=== PATIENT | female | born 1995 | race Caucasian/White ===

== ENCOUNTER 2021-01-13 18:28 | Emergency (ER) | payer OTHER ==
[~2021-01-13 18:28] MED LIST: IBUPROFEN800 MG PO; NORCO 5-325 TA1 EACH PO
== END 2021-01-13 20:13 | disposition home or self-care (01) ==
LOC: FER 18:28
DX: O20.0 Threatened abortion (principal); O99.511 Diseases of the respiratory system complicating pregnancy, first trimester; J45.909 Unspecified asthma, uncomplicated; Z3A.12 12 weeks gestation of pregnancy
CPT/HCPCS: 76815